=== PATIENT | male | born 1945 | race Caucasian/White ===

== ENCOUNTER 2019-11-07 20:36 | Inpatient (IN) ==
[2019-11-07] MEDS ORDERED: CALCIUM CHLORIDE 1,000 MG/10 ML SYRINGE IV ONE (20:59)
[2019-11-07] MEDS ORDERED: AMIODARONE INJ 450 MG in DEXTROSE 5% 241 ML IV SCH (21:02)
[2019-11-07] MEDS: DOPamine 800 MG/250 ML PREMIX IV PRN (21:09)
[2019-11-07] MEDS ORDERED: MAGNESIUM SULF RIDER 50 ML IV ONE (21:10)
[2019-11-07] MEDS ORDERED: EPINEPHrine 1 MG/10 ML SYRINGE ONE (21:11)
[2019-11-07] MEDS ORDERED: MAGNESIUM SULF RIDER 2 GM in PREMIX 1 EACH IV STA (21:12)
[2019-11-07 22:17] LABS: Basophils # 0.1 10*3/uL (0.0-0.2); Basophils % 0.3 % (0.0-0.8); Eosinophils # 0.3 10*3/uL (0.0-0.87); Eosinophils % 1.2 % (0.00-10.9); Hematocrit 46.1 VOL% (42.0-52.0); Hemoglobin 14.4 GM/DL (14.0-18.0); Immature Granulocytes Absolute 0.65 #; Lymphocytes # 7.1 10*3/uL (1.4-4.0); Lymphocytes % 33.3 % (21.2-54.2); Mean Corpuscular HGB Conc 31.2 GM/DL (32-36); Mean Corpuscular Volume 97.5 FL (87-102); Monocytes % 2.5 % (1.7-12.7); NRBC # 0.04 10*3/uL; Neutrophils % 59.7 % (38.7-73.9); Platelet Count 130 T/CUMM (130-400); Red Blood Count 4.73 MC/CUMM (3.8-5.5); Red Cell Distribution Width 12.5 % (9.3-17.3); White Blood Count 21.4 T/CUMM (4-12)
[2019-11-07 22:23] LABS: Allen Test Positive; Pt O2 Delivery Device Ventilator
[2019-11-07 22:26] LABS: ABG Base Excess -13.1 MMOL/L (-2.5-2.5); ABG HCO3 16.2 MMOL/L (20-26); ABG PCO2 50.4 MM HG (35-48); ABG PO2 148.2 MM HG (80-95); ABG TCO2 17.8 MMOL/L (23-27)
[2019-11-07 22:34] LABS: ABG PH 7.126 (7.35-7.45)
[2019-11-07 22:35] LABS: Apearance,Urine CLOUDY (Clear); Bacteria,Urine Few /HPF (Few); Bilirubin,Urine Negative (Negative); Blood, Urine Moderate mg/dL (Negative); Glucose,Urine (UA) Negative (Negative); Hyaline Casts,Urine 80 /LPF (0-3); Ketones,Urine Negative (Negative); Nitrite,Urine Negative (Negative); Protein,Urine 100 MG/DL; RBC,Urine 356 /HPF (0-4); Sperm,Urine Many /HPF (Negative); Urine Color Amber (Yellow); Urine Specific Gravity 1.018 (1.001-1.035); WBC,Urine 204 /HPF (0-6)
[2019-11-07] MEDS ORDERED: PIPERACILLIN/TAZOBACTAM 3,375 MG in SODIUM CHLORIDE 0.9% 100 ML IV STA (22:43)
[2019-11-07 22:46] LABS: Albumin 2.9 G/DL (3.4-5.0); Bilirubin,Total 0.4 MG/DL (0.2-1.0); CKMB % 6.2 %; Calcium 10.8 MG/DL (8.5-10.1); Total Protein 5.9 G/DL (6.4-8.3)
[2019-11-07 22:48] LABS: Troponin I 10.8 NG/ML (0.00-0.045)
[2019-11-07] MEDS ORDERED: ATROPINE 1 MG/10 ML SYRINGE ONE (22:54)
[2019-11-07 23:50] LABS: INR 1.3; Partial Thromboplastin Time 28.6 SECS (23.9-33.8)
[2019-11-07 23:58] LABS: Band Neutrophils 4 % (0-10); Eosinophils 2 % (0-10); Lymphocytes 27 % (20-55); Segmented Neutrophils 65 % (50-85); Total Cells Counted 100
[2019-11-07 23:59] LABS: Atypical Lymphocytes Few; Burr Cells 1+; Ovalocytes 1+; Reactive Lymphocytes Few
[2019-11-08] LABS: Platelet Estimate Normal
[2019-11-08] MEDS ORDERED: LACTATED RINGERS 1,000 ML IV SCH (00:46)
[2019-11-08] MEDS ORDERED: PHENYLEPHRINE DRIP 40 MG/250 ML PREMIX IV SCH (00:46)
[2019-11-08] MEDS ORDERED: PROMETHAZINE 25 MG/1 ML VIAL IM PRN (00:46)
[2019-11-08] MEDS ORDERED: ONDANSETRON 4 MG/2 ML VIAL IV PRN (00:46)
[2019-11-08] MEDS ORDERED: ALBUTEROL 2.5 MG/3 ML NEB RESP TX PRN (00:46)
[2019-11-08] MEDS: PHENYLEPHRINE INJ 80 MG in SODIUM CHLORIDE 0.9% 242 ML IV PRN ×3 (00:50→09:02)
[2019-11-08] MEDS ORDERED: MEPERIDINE 25 MG/1 ML VIAL IV PRN (00:57)
[2019-11-08] MEDS ORDERED: DOPamine 800 MG/250 ML PREMIX IV PRN (00:57)
[2019-11-08] MEDS ORDERED: fentaNYL INJ 1,250 MCG in SODIUM CHLORIDE 0.9% 225 ML IV PRN (00:57)
[2019-11-08] MEDS ORDERED: LORazepam INJ 40 MG in DEXTROSE 5% 30 ML IV PRN (00:57)
[2019-11-08] MEDS: SODIUM CHLORIDE 0.9% 1,000 ML IV SCH ×2 (01:20→09:16)
[2019-11-08] MEDS ORDERED: CISATRACURIUM 10 MG/5 ML VIAL IV ONE (01:25)
[2019-11-08] MEDS ORDERED: MAGNESIUM SULF RIDER 2 GM in PREMIX 1 EACH IV PRN (01:30)
[2019-11-08] MEDS ORDERED: MAGNESIUM SULF RIDER 4 GM in PREMIX 1 EACH IV PRN (01:30)
[2019-11-08] MEDS ORDERED: POTASSIUM CHLORIDE RIDER 10 MEQ in PREMIX 1 EACH IV PRN (01:30)
[2019-11-08 01:38] LABS: ABG Base Excess -5.3 MMOL/L (-2.5-2.5); ABG HCO3 20.1 MMOL/L (20-26); ABG Oxygen Saturation 99.7 % (95-100); ABG PCO2 42.2 MM HG (35-48); ABG PH 7.304 (7.35-7.45); ABG TCO2 18.5 MMOL/L (23-27)
[2019-11-08] MEDS: NOREPINEPHRINE 16 MG in SODIUM CHLORIDE 0.9% 234 ML IV PRN ×2 (01:58→08:00)
[2019-11-08] MEDS: NOREPINEPHRINE 8 MG in SODIUM CHLORIDE 0.9% 242 ML IV SCH ×2 (01:58→02:31)
[2019-11-08] MEDS: CISATRACURIUM 200 MG in SODIUM CHLORIDE 0.9% 180 ML IV PRN ×2 (02:10→09:49)
[2019-11-08] MEDS ORDERED: LIDOCAINE DRIP 2,000 MG/250 ML PREMIX IV ONE (02:39)
[2019-11-08] MEDS: DOPamine 800 MG/250 ML PREMIX IV PRN ×2 (02:47→07:09)
[2019-11-08] MEDS ORDERED: LIDOCAINE DRIP 2,000 MG/250 ML PREMIX IV SCH (02:53)
[2019-11-08] MEDS ORDERED: AMIODARONE INJ 450 MG in DEXTROSE 5% 241 ML IV SCH ×2 (03:00→05:00)
[2019-11-08 04:13] LABS: Basophils # 0.1 10*3/uL (0.0-0.2); Basophils % 0.2 % (0.0-0.8); Hematocrit 44.3 VOL% (42.0-52.0); Hemoglobin 14.1 GM/DL (14.0-18.0); Immature Granulocytes % 0.7 %; Immature Granulocytes Absolute 0.22 #; Lymphocytes # 0.9 10*3/uL (1.4-4.0); Lymphocytes % 3.1 % (21.2-54.2); Mean Corpuscular HGB Conc 31.8 GM/DL (32-36); Mean Corpuscular Volume 95.7 FL (87-102); Mean Platelet Volume 12.3 FL (9.6-12.0); Monocytes % 4.6 % (1.7-12.7); Neutrophils % 91.4 % (38.7-73.9); Red Blood Count 4.63 MC/CUMM (3.8-5.5); Red Cell Distribution Width 12.5 % (9.3-17.3)
[2019-11-08 04:18] LABS: ABG Base Excess -9.5 MMOL/L (-2.5-2.5); ABG Oxygen Saturation 98.4 % (95-100); ABG PCO2 42.7 MM HG (35-48); ABG PH 7.233 (7.35-7.45); ABG TCO2 15.9 MMOL/L (23-27)
[2019-11-08 04:30] LABS: Platelet Count 171 T/CUMM (130-400); White Blood Count 29.4 T/CUMM (4-12)
[2019-11-08 04:36] LABS: Calcium 9.5 MG/DL (8.5-10.1); Osmolality,Calculated 303.7 MOS/KG (273-304)
[2019-11-08 04:39] LABS: Alanine Aminotransferase 277 U/L (16-61); Albumin 2.8 G/DL (3.4-5.0); Alkaline Phosphatase 113 U/L (45-117); Aspartate Amino Transferase 931 U/L (0-37); Blood Urea Nitrogen 35 MG/DL (7-18); Calcium 9.4 MG/DL (8.5-10.1); Estimated Glom Filtration Rate 33 ML/MIN; Glucose 235 MG/DL (74-106); Osmolality,Calculated 296.3 MOS/KG (273-304); Total Protein 5.9 G/DL (6.4-8.3)
[2019-11-08] MEDS ORDERED: AMIODARONE 450 MG/9 ML VIAL IV ONE ×2 (04:48→04:52)
[2019-11-08] MEDS ORDERED: AMIODARONE 150 MG/3 ML VIAL ONE (04:49)
[2019-11-08] MEDS: INSULIN REGULAR 100 UNIT/ML IV SCH ×3 (04:57→11:17)
[2019-11-08 05:02] LABS: Band Neutrophils 10 % (0-10); Lymphocytes 4 % (20-55); Metamyelocytes 3 %; Segmented Neutrophils 77 % (50-85); Total Cells Counted 100
[2019-11-08 05:03] LABS: Microcytosis Slight; Ovalocytes Slight
[2019-11-08 05:04] LABS: Platelet Estimate Adequate
[2019-11-08] MEDS: POTASSIUM CHLORIDE RIDER 20 MEQ in PREMIX 1 EACH IV PRN ×3 (05:19→11:05)
[2019-11-08 05:26] LABS: CKMB % 7.1 %
[2019-11-08 05:34] LABS: INR 1.4; PT Patient Result 15.1 SECS (9.8-11.9); Partial Thromboplastin Time 29.8 SECS (23.9-33.8)
[2019-11-08 05:44] LABS: Troponin I > 200.000 NG/ML (0.00-0.045)
[2019-11-08 06:10] VITALS: BP 54/47
[2019-11-08] MEDS ORDERED: SODIUM BICARBONATE 50 MEQ/50 ML SYRINGE IV ONE (06:47)
[2019-11-08] MEDS ORDERED: CALCIUM CHLORIDE 1,000 MG/10 ML SYRINGE IV ONE (06:47)
[2019-11-08] MEDS ORDERED: EPINEPHrine 1 MG/10 ML SYRINGE ONE (06:47)
[2019-11-08] MEDS ORDERED: SODIUM BICARB INJ 150 MEQ in DEXTROSE 5% 1,000 ML IV SCH (07:30)
[2019-11-08] MEDS ORDERED: ENOXAPARIN 40 MG/0.4 ML SYRINGE SUBCUT SCH (09:00)
[2019-11-08] MEDS ORDERED: PANTOPRAZOLE 40 MG VIAL IV SCH (09:00)
[2019-11-08 09:53] LABS: Basophils % 0.1 % (0.0-0.8); Hematocrit 40.2 VOL% (42.0-52.0); Hemoglobin 12.9 GM/DL (14.0-18.0); Immature Granulocytes % 0.5 %; Immature Granulocytes Absolute 0.13 #; Lymphocytes % 4.3 % (21.2-54.2); Mean Corpuscular HGB Conc 32.1 GM/DL (32-36); Mean Platelet Volume 12.4 FL (9.6-12.0); Neutrophils % 88.1 % (38.7-73.9); Platelet Count 143 T/CUMM (130-400); Red Blood Count 4.23 MC/CUMM (3.8-5.5); Red Cell Distribution Width 12.7 % (9.3-17.3); White Blood Count 23.9 T/CUMM (4-12)
[2019-11-08 09:54] LABS: ABG Base Excess -6.4 MMOL/L (-2.5-2.5); ABG HCO3 19.3 MMOL/L (20-26); ABG Oxygen Saturation 99.5 % (95-100); ABG PCO2 45.3 MM HG (35-48); ABG PH 7.268 (7.35-7.45); ABG TCO2 18.4 MMOL/L (23-27)
[2019-11-08 10:02] LABS: INR 1.7; PT Patient Result 18.2 SECS (9.8-11.9); Partial Thromboplastin Time 26.9 SECS (23.9-33.8)
[2019-11-08 10:23] LABS: Calcium 8.8 MG/DL (8.5-10.1); Osmolality,Calculated 302.6 MOS/KG (273-304)
[2019-11-08 10:31] LABS: Albumin 2.1 G/DL (3.4-5.0); Bilirubin,Total 1.4 MG/DL (0.2-1.0); Calcium 9.5 MG/DL (8.5-10.1); Osmolality,Calculated 304.4 MOS/KG (273-304); Total Protein 4.6 G/DL (6.4-8.3)
[2019-11-08 10:39] LABS: Band Neutrophils 7 % (0-10); Lymphocytes 10 % (20-55); Metamyelocytes 1 %; Segmented Neutrophils 79 % (50-85); Total Cells Counted 100
[2019-11-08 10:40] LABS: Microcytosis Slight; Ovalocytes Slight; Platelet Estimate Adequate
[2019-11-08 10:41] LABS: CKMB % 8.1 %
[2019-11-08 10:43] LABS: Troponin I > 200.000 NG/ML (0.00-0.045)
[2019-11-08] MEDS ORDERED: MIDAZOLAM 100 MG in SODIUM CHLORIDE 0.9% 80 ML IV PRN (10:47)
== END 2019-11-08 11:49 | disposition expired ==
LOC: EDUNIT# → EDBD → N.ED 20:36 → N.EDINP 11-08 00:10 → SUATTDRO 11-08 00:10 → N.ICU 11-08 00:31
PROVIDERS: ADMIT Internal Medicine; ATTEND Internal Medicine